=== PATIENT | female | born 1930 | race Caucasian/White ===

== ENCOUNTER 2017-06-25 07:43 | Outpatient (CLI) | payer MEDICARE, OTHER ==
[~2017-06-25 07:43] MED LIST: ASPI-1009 PO; COR3.125T PO; CYCL-394 PO; GABA-532 PO; LOVA10TA56 PO; NITR0.4T51 SL; NOR5T PO; NORCO10T PO; VAL5T PO
[2017-06-25 10:01] LABS: BASOPHILS % (AUTO) 0.9 % (0-1); EOSINOPHILS # (AUTO) 0.3 X10'3 (0-0.9); HEMATOCRIT 36.8 % (35.0-45.0); HEMOGLOBIN 12.6 g/dl (12.0-16.0); LYMPHOCYTES # (AUTO) 1.2 X10'3 (1.1-4.8); LYMPHOCYTES % (AUTO) 25.3 % (21-51); MEAN CORPUSCULAR HEMOGLOBIN 29.6 PG (27.0-31.0); MEAN CORPUSCULAR HGB CONC 34.2 % (33.0-36.5); MEAN CORPUSCULAR VOLUME 86.5 FL (78-98); MONOCYTES # (AUTO) 0.4 X10'3 (0-0.9); MONOCYTES % (AUTO) 8.8 % (2-12); NEUTROPHILS # (AUTO) 2.9 X10'3 (1.8-7.7); PLATELET COUNT 244 X10'3 (140-440); RED BLOOD COUNT 4.25 X10'6 (4.20-5.60); RED CELL DISTRIBUTION WIDTH 13.5 % (11.5-14.5); WHITE BLOOD COUNT 4.9 X10'3 (4.5-11.0)
[2017-06-25 10:06] LABS: CLARITY,URINE CLEAR (Clear); COLOR,URINE YELLOW (Yellow); GLUCOSE, URINE NEGATIVE (Neg); KETONES,URINE NEGATIVE (Neg); LEUKOCYTE ESTERASE ,URINE NEGATIVE (Neg); NITRITES, URINE NEGATIVE (Neg); OCCULT BLOOD,URINE NEGATIVE (Neg); PROTEIN,URINE NEGATIVE (Neg); UROBILINOGEN,URINE 0.2 E.U/dL (0.2-1.0)
[2017-06-25 10:09] LABS: UA COLLECTION TYPE CLN CATCH MIDSTREAM
[2017-06-25 10:10] LABS: PROTHROMBIN TIME 10.5 SECONDS (9.0-12.0)
[2017-06-25 10:18] LABS: ALANINE AMINOTRANSFERASE 34 U/L (12-78); ALBUMIN 3.7 G/DL (3.4-5.0); ALBUMIN/GLOBULIN RATIO 0.9 (1.1-1.5); ANION GAP 7 (8-16); ASPARTATE AMINO TRANSFERASE 31 U/L (10-37); BILIRUBIN,TOTAL 0.5 MG/DL (0.1-1.0); BLOOD UREA NITROGEN 19 MG/DL (7-18); BUN/CREATININE RATIO 22.1 (6.6-38.0); CHLORIDE 102 MMOL/L (99-107); CREATININE 0.86 MG/DL (0.40-0.90); GLUCOSE 94 MG/DL (70-104); POTASSIUM 4.1 MMOL/L (3.5-5.1); SODIUM 137 MMOL/L (135-145); TOTAL CARBON DIOXIDE 28.2 MMOL/L (24-32); TOTAL PROTEIN 7.6 G/DL (6.4-8.2); eGFR 62 ML/MIN
[2017-06-25 10:19] LABS: ALKALINE PHOSPHATASE 53 IU/L (46-116)
== END 2017-06-25 23:59 | disposition home or self-care (01) ==
LOC: LAB 07:43
PROVIDERS: ATTEND Specialist
DX: Z01.818 Encounter for other preprocedural examination (principal); Z51.81 Encounter for therapeutic drug level monitoring; N39.0 Urinary tract infection, site not specified; I10 Essential (primary) hypertension; Z87.891 Personal history of nicotine dependence
CPT/HCPCS: 36415; 80053; 81003; 85025; 85610

== ENCOUNTER 2017-07-04 10:30 | Inpatient (IN) | payer MEDICARE, OTHER ==
[~2017-07-04] VITALS: Ht 160 cm; Wt 57.1 kg
[~2017-07-04 10:30] MED LIST changes: -COR3.125T PO; -CYCL-394 PO; +DOCU250C4 PO; -NOR5T PO; +ROPI0.2540 PO
[2017-07-05] MEDS ORDERED: AMLO10TA4 PO (15:33)
[2017-07-05] MEDS ORDERED: CARV12.5 PO (15:34)
[2017-07-05] MEDS ORDERED: ISOS30TA6 PO (15:36)
[2017-07-05] MEDS ORDERED: ZOLP10TA PO (15:37)
[2017-07-08] MEDS ORDERED: ringers solution, lacted 1,000 ML IV SCH (05:00)
[2017-07-08] MEDS ORDERED: famotidine 20mg tablet PO ONE (05:30)
[2017-07-08] MEDS ORDERED: DOCUMENT DATE & TIME OF BETA-BLOCKER PO ONE (05:30)
[2017-07-08] MEDS ORDERED: gabapentin 300mg capsule PO ONE (05:30)
[2017-07-08] MEDS ORDERED: tranexamic acid inj. 1,000 MG in normal saline 100ml IV soln 90 ML IV ONE (05:30)
[2017-07-08] MEDS ORDERED: oxyCODONE SR 10mg (sust. release) tab PO ONE (05:30)
[2017-07-08] MEDS ORDERED: acetaminophen 325mg tablet PO ONE (05:30)
[2017-07-08] MEDS ORDERED: cefazolin/dext.iso 2gm/50ml 50 ML IV ONE (05:30)
[2017-07-09] VITALS (23 sets, daily range): BP systolic 117–170; BP diastolic 58–84
[2017-07-09] MEDS ORDERED: LIDOcaine 1% (10mg/ml) 2ml vial ONE (05:51)
[2017-07-09] MEDS ORDERED: famotidine 20mg tablet PO ONE (06:00)
[2017-07-09] MEDS ORDERED: ceFAZolin inj. 2,000 MG in dextrose 5%-water 100 ML IV ONE (06:00)
[2017-07-09] MEDS ORDERED: oxyCODONE SR 10mg (sust. release) tab PO ONE (06:00)
[2017-07-09] MEDS ORDERED: gabapentin 300mg capsule PO ONE (06:00)
[2017-07-09] MEDS ORDERED: DOCUMENT DATE & TIME OF BETA-BLOCKER PO ONE (06:00)
[2017-07-09] MEDS ORDERED: ringers solution, lacted 1,000 ML IV SCH ×2 (06:00→10:18)
[2017-07-09] MEDS ORDERED: tranexamic acid inj. 1,000 MG in normal saline 100ml IV soln 90 ML IV ONE (06:00)
[2017-07-09] MEDS ORDERED: acetaminophen 325mg tablet PO ONE (06:00)
[2017-07-09] MEDS ORDERED: bacitracin inj 150,000 UNIT in sodium chloride irrig. sol 3,000 ML IR ONE (07:00)
[2017-07-09] MEDS ORDERED: cloNIDine hcl/PF 100mcg/ml inj ONE (07:14)
[2017-07-09] MEDS ORDERED: BUPIVAcaine/PF 7.5mg/ml (0.75%) 10ml vial ONE (07:17)
[2017-07-09] MEDS ORDERED: fentaNYL/PF 50MCG/1 ML 2ML syringe ONE ×2 (07:18→08:40)
[2017-07-09] MEDS ORDERED: midazolam 2 mg/2 ml injection ONE (07:18)
[2017-07-09] MEDS ORDERED: morphine sulfate /PF 0.5 MG/ML 10mL ampul ONE (07:21)
[2017-07-09] MEDS ORDERED: phenylephrine 10mg/ml inj IV ONE (07:23)
[2017-07-09] MEDS ORDERED: sevoflurane 250ml liquid IH ONE (07:23)
[2017-07-09] MEDS ORDERED: ROPIVAcaine 0.5% (5mg/ml) 30ml vial ONE ×3 (08:13→08:40)
[2017-07-09] MEDS ORDERED: ceFAZolin 1000mg inj ONE (08:40)
[2017-07-09] MEDS ORDERED: propofol inj 20 ML IV ONE (08:42)
[2017-07-09] MEDS ORDERED: LIDOcaine 2% (20mg/ml) 5ml vial ONE (08:42)
[2017-07-09] MEDS ORDERED: glycopyrrolate 0.2mg/ml inj ONE (08:42)
[2017-07-09] MEDS ORDERED: nitroGLYCERIN 0.4mg SUBLingual tab SL PRN (09:55)
[2017-07-09] MEDS ORDERED: magnesium hydroxide 30ml (MOM) UD suspension PO PRN (10:00)
[2017-07-09] MEDS ORDERED: acetaminophen 325mg tablet PO PRN (10:00)
[2017-07-09] MEDS ORDERED: ondansetron/PF 4mg/2ml inj IV PRN ×2 (10:00→10:20)
[2017-07-09] MEDS ORDERED: diphenhydrAMINE 25mg capsule PO PRN ×2 (10:00)
[2017-07-09] MEDS ORDERED: bisacodyl 10mg suppository rectal RC PRN (10:00)
[2017-07-09] MEDS ORDERED: HYDROmorphone inj. 0.5 MG/0.5 ML DISP.SYRIN IV PRN ×2 (10:20)
[2017-07-09] MEDS ORDERED: morphine 4 MG/ML inj SYRINge ONE (10:23)
[2017-07-09] MEDS: morphine 4 MG/ML inj SYRINge IV PRN ×6 (10:24→22:32)
[2017-07-09] MEDS: HYDROmorphone inj. 0.5 MG/0.5 ML DISP.SYRIN IV PRN ×2 (11:23→15:34)
[2017-07-09] MEDS: oxyCODONE/APAP 10/325mg tablet PO PRN ×4 (11:49→21:14)
[2017-07-09] MEDS: potassium cl 20mEq in 1/2 NS 1,000 ML IV SCH ×2 (13:36→21:18)
[2017-07-09] MEDS: gabapentin 300mg capsule PO SCH ×2 (13:36→21:12)
[2017-07-09] MEDS: ceFAZolin 1GM/D5W- ADD-VANTAGE 50 ML IV SCH ×2 (15:13→23:40)
[2017-07-09] MEDS: sennosides 8.6mg tablet PO SCH (21:11)
[2017-07-09] MEDS: ascorbic acid 500mg tablet PO SCH (21:12)
[2017-07-09] MEDS: atorvastatin 10mg tablet PO SCH (21:12)
[2017-07-09] MEDS: amLODIPine 5mg tablet PO SCH (21:12)
[2017-07-09] MEDS: carVEDilol 12.5mg tablet PO SCH (21:12)
[2017-07-09] MEDS: ROPINIRole 0.25mg tablet PO SCH (21:12)
[2017-07-09] MEDS: mag hydrox/Alum hydrox/simeth 30ml oral suspension PO PRN (21:18)
[2017-07-09] MEDS ORDERED: morphine 4 MG/ML inj SYRINge IV PRN (22:20)
[2017-07-09] MEDS ORDERED: celeCOXIB 100mg capsule PO ONE (23:25)
[2017-07-10] MEDS: oxyCODONE/APAP 10/325mg tablet PO PRN ×6 (01:30→22:40)
[2017-07-10 05:39] LABS: BASOPHILS % (AUTO) 0.3 % (0-1); EOSINOPHILS # (AUTO) 0.2 X10'3 (0-0.9); EOSINOPHILS % (AUTO) 3.1 % (0-6); HEMOGLOBIN 10.4 g/dl (12.0-16.0); LYMPHOCYTES # (AUTO) 1.2 X10'3 (1.1-4.8); LYMPHOCYTES % (AUTO) 17.6 % (21-51); MEAN CORPUSCULAR HEMOGLOBIN 29.8 PG (27.0-31.0); MEAN CORPUSCULAR HGB CONC 33.7 % (33.0-36.5); MEAN CORPUSCULAR VOLUME 88.2 FL (78-98); MEAN PLATELET VOLUME 9.3 FL (7.4-10.4); MONOCYTES # (AUTO) 0.7 X10'3 (0-0.9); MONOCYTES % (AUTO) 10.2 % (2-12); NEUTROPHILS # (AUTO) 4.8 X10'3 (1.8-7.7); NEUTROPHILS % (AUTO) 68.8 % (42-75); PLATELET COUNT 178 X10'3 (140-440); RED BLOOD COUNT 3.51 X10'6 (4.20-5.60); RED CELL DISTRIBUTION WIDTH 13.5 % (11.5-14.5); WHITE BLOOD COUNT 6.9 X10'3 (4.5-11.0)
[2017-07-10 05:45] LABS: INR 1.4 INR; PROTHROMBIN TIME 14.6 SECONDS (9.0-12.0)
[2017-07-10] MEDS: potassium cl 20mEq in 1/2 NS 1,000 ML IV SCH ×4 (05:46→20:42)
[2017-07-10 06:31] LABS: ANION GAP 7 (8-16); CHLORIDE 103 MMOL/L (99-107); POTASSIUM 4.6 MMOL/L (3.5-5.1); SODIUM 136 MMOL/L (135-145); TOTAL CARBON DIOXIDE 25.8 MMOL/L (24-32)
[2017-07-10 06:42] VITALS: BP 146/67
[2017-07-10] MEDS: ascorbic acid 500mg tablet PO SCH ×2 (08:46→20:41)
[2017-07-10] MEDS: multivitamins, therapeutics tablet PO SCH (08:46)
[2017-07-10] MEDS: carVEDilol 12.5mg tablet PO SCH ×2 (08:47→20:41)
[2017-07-10] MEDS: gabapentin 300mg capsule PO SCH ×3 (08:47→20:41)
[2017-07-10] MEDS: isosorbide mononitrate 30mg tab.SR.24H PO SCH (08:47)
[2017-07-10] MEDS ORDERED: warfarin 5mg tablet PO ONE (10:00)
[2017-07-10 11:33] VITALS: BP 116/55
[2017-07-10] MEDS: HYDROmorphone 2mg tablet PO PRN ×2 (12:20→20:41)
[2017-07-10 14:48] VITALS: BP 109/47
[2017-07-10] MEDS: morphine 4 MG/ML inj SYRINge IV PRN (16:50)
[2017-07-10 17:56] VITALS: BP 143/74
[2017-07-10] MEDS: ROPINIRole 0.25mg tablet PO SCH (20:40)
[2017-07-10] MEDS: amLODIPine 5mg tablet PO SCH (20:40)
[2017-07-10] MEDS: atorvastatin 10mg tablet PO SCH (20:41)
[2017-07-10] MEDS: sennosides 8.6mg tablet PO SCH (20:41)
[2017-07-10 22:00] VITALS: BP 129/57
[2017-07-11] MEDS: HYDROmorphone 2mg tablet PO PRN (02:22)
[2017-07-11] MEDS: oxyCODONE/APAP 10/325mg tablet PO PRN ×4 (05:43→17:21)
[2017-07-11 05:47] LABS: INR 1.5 INR; PROTHROMBIN TIME 15.1 SECONDS (9.0-12.0)
[2017-07-11 05:49] LABS: BASOPHILS % (AUTO) 0.6 % (0-1); EOSINOPHILS # (AUTO) 0.4 X10'3 (0-0.9); EOSINOPHILS % (AUTO) 7.1 % (0-6); HEMATOCRIT 31.4 % (35.0-45.0); HEMOGLOBIN 10.7 g/dl (12.0-16.0); LYMPHOCYTES # (AUTO) 1.2 X10'3 (1.1-4.8); MEAN CORPUSCULAR HEMOGLOBIN 30.1 PG (27.0-31.0); MEAN CORPUSCULAR HGB CONC 33.9 % (33.0-36.5); MEAN CORPUSCULAR VOLUME 88.6 FL (78-98); MEAN PLATELET VOLUME 9.3 FL (7.4-10.4); MONOCYTES # (AUTO) 0.7 X10'3 (0-0.9); MONOCYTES % (AUTO) 10.6 % (2-12); NEUTROPHILS # (AUTO) 3.9 X10'3 (1.8-7.7); NEUTROPHILS % (AUTO) 62.7 % (42-75); PLATELET COUNT 180 X10'3 (140-440); RED BLOOD COUNT 3.55 X10'6 (4.20-5.60); RED CELL DISTRIBUTION WIDTH 13.9 % (11.5-14.5); WHITE BLOOD COUNT 6.2 X10'3 (4.5-11.0)
[2017-07-11 06:48] VITALS: BP 146/66
[2017-07-11 07:24] VITALS: BP 137/55
[2017-07-11] MEDS: multivitamins, therapeutics tablet PO SCH (08:28)
[2017-07-11] MEDS: isosorbide mononitrate 30mg tab.SR.24H PO SCH (08:28)
[2017-07-11] MEDS: gabapentin 300mg capsule PO SCH ×3 (08:28→20:02)
[2017-07-11] MEDS: carVEDilol 12.5mg tablet PO SCH ×2 (08:28→20:02)
[2017-07-11] MEDS: ascorbic acid 500mg tablet PO SCH ×2 (08:29→20:02)
[2017-07-11] MEDS: mag hydrox/Alum hydrox/simeth 30ml oral suspension PO PRN (09:41)
[2017-07-11] MEDS ORDERED: warfarin 3mg tablet PO ONE (10:00)
[2017-07-11] MEDS ORDERED: acetaminophen 325mg tablet PO PRN (10:00)
[2017-07-11 18:00] VITALS: BP 119/61
[2017-07-11] MEDS: atorvastatin 10mg tablet PO SCH (20:02)
[2017-07-11] MEDS: sennosides 8.6mg tablet PO SCH (20:02)
[2017-07-11] MEDS: ROPINIRole 0.25mg tablet PO SCH (20:02)
[2017-07-11] MEDS: amLODIPine 5mg tablet PO SCH (20:02)
[2017-07-11 22:00] VITALS: BP 134/47
[2017-07-12] MEDS: oxyCODONE/APAP 10/325mg tablet PO PRN ×4 (00:48→12:54)
[2017-07-12 05:24] LABS: BASOPHILS % (AUTO) 0.1 % (0-1); EOSINOPHILS # (AUTO) 0.3 X10'3 (0-0.9); EOSINOPHILS % (AUTO) 4.5 % (0-6); HEMATOCRIT 30.7 % (35.0-45.0); HEMOGLOBIN 10.4 g/dl (12.0-16.0); LYMPHOCYTES # (AUTO) 0.9 X10'3 (1.1-4.8); LYMPHOCYTES % (AUTO) 11.9 % (21-51); MEAN CORPUSCULAR HEMOGLOBIN 29.7 PG (27.0-31.0); MEAN CORPUSCULAR HGB CONC 34.1 % (33.0-36.5); MEAN CORPUSCULAR VOLUME 87.2 FL (78-98); MEAN PLATELET VOLUME 8.7 FL (7.4-10.4); MONOCYTES # (AUTO) 0.7 X10'3 (0-0.9); NEUTROPHILS # (AUTO) 5.6 X10'3 (1.8-7.7); NEUTROPHILS % (AUTO) 74.5 % (42-75); PLATELET COUNT 192 X10'3 (140-440); RED BLOOD COUNT 3.52 X10'6 (4.20-5.60); RED CELL DISTRIBUTION WIDTH 13.6 % (11.5-14.5); WHITE BLOOD COUNT 7.5 X10'3 (4.5-11.0)
[2017-07-12 05:42] LABS: INR 1.4 INR; PROTHROMBIN TIME 14.2 SECONDS (9.0-12.0)
[2017-07-12 06:00] VITALS: BP 146/64
[2017-07-12] MEDS: isosorbide mononitrate 30mg tab.SR.24H PO SCH (08:59)
[2017-07-12] MEDS: ascorbic acid 500mg tablet PO SCH (08:59)
[2017-07-12] MEDS: multivitamins, therapeutics tablet PO SCH (08:59)
[2017-07-12] MEDS: carVEDilol 12.5mg tablet PO SCH (08:59)
[2017-07-12] MEDS: gabapentin 300mg capsule PO SCH ×2 (08:59→12:54)
[2017-07-12 10:00] VITALS: BP 122/54
[2017-07-12] MEDS ORDERED: warfarin 5mg tablet PO ONE (10:00)
[2017-07-12] MEDS: mag hydrox/Alum hydrox/simeth 30ml oral suspension PO PRN (14:42)
== END 2017-07-12 15:10 | DRG 470 ==
LOC: EDSTATUS 10:30 → PAS IN 07-09 05:25 → EDSTATUS 07-09 07:30 → ORTHO 4S 07-09 13:00
PROVIDERS: ADMIT Specialist; ATTEND Specialist
PROC: 3E0T3BZ Introduction of Anesthetic Agent into Peripheral Nerves and Plexi, Percutaneous Approach (ICD-10-PCS; 2017-07-09)
PROC: 0SRC0J9 Replacement of Right Knee Joint with Synthetic Substitute, Cemented, Open Approach (ICD-10-PCS; principal; 2017-07-09 07:20)
DX: M17.11 Unilateral primary osteoarthritis, right knee (principal); D62 Acute posthemorrhagic anemia; G62.9 Polyneuropathy, unspecified; E78.5 Hyperlipidemia, unspecified; G89.29 Other chronic pain; M21.061 Valgus deformity, not elsewhere classified, right knee; I25.119 Atherosclerotic heart disease of native coronary artery with unspecified angina pectoris; G25.81 Restless legs syndrome; I10 Essential (primary) hypertension; Z96.612 Presence of left artificial shoulder joint; Z79.891 Long term (current) use of opiate analgesic; Z88.6 Allergy status to analgesic agent; Z90.49 Acquired absence of other specified parts of digestive tract; Z79.899 Other long term (current) drug therapy; Z87.891 Personal history of nicotine dependence
CPT/HCPCS: 36415; 73560; 80051; 85025; 85610; 87070; 97110; 97116; 97162; 97530; A6449; A6455; A7000; C1713; C1758; C1776; J0690; J0735; J1170; J2001; J2250; J2270; J2274; J2370; J2704; J2795; J3010; J3490; J7030; J7060; J7120